=== PATIENT | female | born 1985 | race Caucasian/White ===

== ENCOUNTER → 2022-02-22 13:51 | Outpatient (CLI) | payer BC, SELFPAY ==
[2022-02-22 14:17] LABS: Appearance Urine UA CLEAR; Bilirubin Urine UA NEGATIVE (NEGATIVE); Color Urine UA YELLOW; Glucose Urine UA NEGATIVE (Negative); Ketones Urine UA NEGATIVE (NEGATIVE); Leukocyte Esterase Urine UA NEGATIVE (NEGATIVE); Nitrite Urine UA NEGATIVE (Negative); Occult Blood Urine UA NEGATIVE (Negative); Protein Urine UA NEGATIVE (Negative); Specific Gravity Urine UA <=1.005 (1.000-1.035); Urobilinogen Urine UA 0.2 E.U./dL (0.2)
[2022-02-22 14:20] LABS: Add Manual Diff / Slide Review NO; Basophils Absolute Auto 0 /uL (0-100); Basophils Percent Auto 0.5 % (0-2); Eosinophils Absolute Auto 0 /uL (0-450); Eosinophils Percent Auto 0.2 % (2-4); Hematocrit 40.4 % (36-46); Lymphocytes Absolute Auto 1200 /uL (1100-4500); Lymphocytes Percent Auto 12.6 % (25-40); Mean Corpuscular HGB Conc 34.6 % (30-36); Mean Corpuscular Hemoglobin 30.7 PG (26-34); Mean Corpuscular Volume 88.8 fL (80-100); Monocytes Absolute Auto 800 /uL (0-900); Neutrophils Absolute Auto 7800 /uL (1500-7000); Neutrophils Percent Auto 78.7 % (50-75); Platelet Count 305 X10^3/uL (150-400); Red Blood Cell Count 4.55 X10^6/uL (4.0-5.2); Red Cell Distribution Width 12.2 % (11.6-14.8); White Blood Cell Count 9.9 X10^3/uL (4.5-11.0)
[2022-02-22 23:27] LABS: HIV 1 & 2 Ab/Ag 4th Gen Combo NEGATIVE (NEGATIVE); Hep C Virus Ab w/Reflex Quant NEGATIVE s/c (NEGATIVE); Hepatitis B Surface Antigen NEGATIVE s/c (NEGATIVE)
[2022-02-23 05:23] LABS: RPR Screen Non Reactive (Non Reactive)
[2022-02-23 08:58] LABS: Varicella IgG Antibody 2518 index (Immune >165)
== END ==
PROVIDERS: PCP Family Medicine; Referring Provider Family Medicine; Visit Provider Family Medicine
DX: Z34.80 Encounter for supervision of other normal pregnancy, unspecified trimester (principal)
CPT/HCPCS: 36415; 80055; 81003; 86787; 86803; 86850; 86900; 86901; 87086; 87389

== ENCOUNTER → 2022-03-08 15:41 | Outpatient (CLI) | payer BC, SELFPAY | PROVIDERS: PCP Family Medicine; Referring Provider Family Medicine; Visit Provider Family Medicine | DX: O09.521 Supervision of elderly multigravida, first trimester (principal); Z31.438 Encounter for other genetic testing of female for procreative management; Z36.0 Encounter for antenatal screening for chromosomal anomalies | CPT/HCPCS: 36415; 81420 ==

== ENCOUNTER → 2022-04-28 12:23 | Outpatient (CLI) | payer BC, SELFPAY ==
--- NOTE | 2022-04-28 12:24 | DI.US.S_ITS ---
PROCEDURE: US OB >= 14 WEEKS FETUS INDICATIONS: ANATOMY SCAN OUTSIDE/PRIOR DATING DATA: Last menstrual period (LMP): Unknown. LMP-based estimated date of delivery (NITIN): Not available First dating scan (date and location): [facility], April 28, 2022 Estimated date of delivery (NITIN) from first dating scan: September 10, 2022. TECHNIQUE: Real-time scanning was performed of the fetus, with image documentation and biometric measurements. Endovaginal scanning: Not performed COMPARISON: None. FINDINGS: General: A single living intrauterine gestation is present. Presentation: Vertex. Placenta: Placental position is anterior, without previa. Amniotic fluid index: 15.3 cm, normal range is 5-24 cm. Single deepest vertical pocket is 4.03 cm. heart rate: 153 beats per minute. Maternal cervical canal: 3.9 cm long. Normal lower limit is 2.5 cm. biometrics: Biparietal diameter: 4.9 cm, 20 weeks, 6 days Head circumference: 18.8 cm, 21 weeks, 1 day Abdominal circumference: 15.0 cm, 20 weeks, 2 days Femur length: 3.4 cm, 20 weeks, 4 days Composite gestational age from present scan: 20 weeks, 5 days Estimated weight and percentile: 357 g Anatomic survey: Neuro: Ventricles are non-dilated at less than 10 mm. Cisterna magna is normal at 3-11 mm. Cerebellum is normal in size and morphology. Nuchal skin fold: Normal at less than 6 mm between 14-21 weeks gestational age. Face: Nose and lips, facial profile are normal. Spine: No evidence for spina bifida. Heart: 4-chambered heart is present, with normal ventricular outflow tracts. Diaphragm: Diaphragm is intact. Stomach: Left-sided stomach is present. Kidneys: No hydronephrosis. Normal is less than 5 mm in 2nd trimester, less than 7 mm in 3rd trimester. Cord: 3-vessel cord has orthotopic insertion. Bladder: Normal in size. Extremities: All 4 extremities identified. IMPRESSION: 1. Single live intrauterine gestation with a composite gestational age of 20 weeks, 5 days. 2. No sonographic anatomic abnormalities. We strive to produce accurate, complete, and clear reports of imaging services. To assist us in improving patient care, this report was composed using standard report templates and voice recognition software. Therefore, it may contain abnormal punctuation, insertions and/or omissions. Occasional wrong-word or sound-alike substitutions may occur. Though we review the report and make efforts to correct it, we do recommend that the report be read carefully in proper context to recognize any text inaccuracies. Dictated by: Carmen Blanco M.D. on 04/28/2022 at 14:35 Approved by: Carmen Blanco M.D. on 04/28/2022 at 14:38
== END ==
PROVIDERS: PCP Family Medicine; Referring Provider Family Medicine; Visit Provider Family Medicine
DX: Z34.82 Encounter for supervision of other normal pregnancy, second trimester (principal); Z3A.20 20 weeks gestation of pregnancy
CPT/HCPCS: 76811

== ENCOUNTER → 2022-06-28 08:04 | Outpatient (CLI) | payer BC, SELFPAY ==
[2022-06-28 10:17] LABS: Add Manual Diff / Slide Review NO; Basophils Absolute Auto 0 /uL (0-100); Basophils Percent Auto 0.2 % (0-2); Eosinophils Absolute Auto 100 /uL (0-450); Eosinophils Percent Auto 0.6 % (2-4); Hematocrit 35.5 % (36-46); Hemoglobin 12.3 g/dL (12.0-16.0); Lymphocytes Absolute Auto 1300 /uL (1100-4500); Lymphocytes Percent Auto 13.8 % (25-40); Mean Corpuscular HGB Conc 34.7 % (30-36); Mean Corpuscular Hemoglobin 30.6 PG (26-34); Mean Corpuscular Volume 88.2 fL (80-100); Monocytes Absolute Auto 700 /uL (0-900); Monocytes Percent Auto 7.2 % (3-14); Neutrophils Absolute Auto 7400 /uL (1500-7000); Neutrophils Percent Auto 78.2 % (50-75); Platelet Count 301 X10^3/uL (150-400); Red Blood Cell Count 4.03 X10^6/uL (4.0-5.2); Red Cell Distribution Width 12.9 % (11.6-14.8); White Blood Cell Count 9.4 X10^3/uL (4.5-11.0)
[2022-06-28 10:30] LABS: GTT (PREG) 1 Hour PP 50gm Dose 143 mg/dL (76-139)
== END ==
PROVIDERS: PCP Family Medicine; Referring Provider Family Medicine; Visit Provider Family Medicine
DX: Z34.92 Encounter for supervision of normal pregnancy, unspecified, second trimester (principal); Z3A.25 25 weeks gestation of pregnancy
CPT/HCPCS: 36415; 82950; 85025

== ENCOUNTER → 2022-07-13 10:55 | Outpatient (CLI) | payer BC, SELFPAY ==
[2022-07-13 13:00] LABS: Glucose Fasting 90 mg/dL (70-100)
[2022-07-13 13:26] LABS: Glucose 1 Hour 148 mg/dL (70-170)
[2022-07-13 14:40] LABS: Glucose Tol Interpretation INTERPRETATION
[2022-07-13 15:27] LABS: Glucose 2 Hour 130 mg/dL (70-140)
[2022-07-13 16:02] LABS: Glucose 3 Hour 98 mg/dL (70-115)
== END ==
PROVIDERS: PCP Family Medicine; Referring Provider Family Medicine; Visit Provider Family Medicine
DX: Z34.80 Encounter for supervision of other normal pregnancy, unspecified trimester (principal)
CPT/HCPCS: 36415; 82951; 82952

== ENCOUNTER → 2022-08-25 15:12 | Outpatient (CLI) | payer BC, SELFPAY ==
[2022-08-26 14:36] LABS: Strep Grp B PCR NEG for Grp B Strep
== END ==
PROVIDERS: PCP Family Medicine; Visit Provider Family Medicine
DX: Z36.85 Encounter for antenatal screening for Streptococcus B (principal)
CPT/HCPCS: 87653

== ENCOUNTER 2022-09-02 05:19 | Inpatient (IN) | payer BC, SELFPAY ==
[2022-09-02 08:02] LABS: Add Manual Diff / Slide Review NO; Basophils Absolute Auto 100 /uL (0-100); Basophils Percent Auto 0.6 % (0-2); Eosinophils Absolute Auto 0 /uL (0-450); Eosinophils Percent Auto 0.2 % (2-4); Hematocrit 36.1 % (36-46); Hemoglobin 12.3 g/dL (12.0-16.0); Lymphocytes Absolute Auto 1500 /uL (1100-4500); Lymphocytes Percent Auto 14.1 % (25-40); Mean Corpuscular HGB Conc 34.1 % (30-36); Mean Corpuscular Hemoglobin 29.9 PG (26-34); Mean Corpuscular Volume 87.6 fL (80-100); Monocytes Absolute Auto 1100 /uL (0-900); Monocytes Percent Auto 10.2 % (3-14); Neutrophils Absolute Auto 8100 /uL (1500-7000); Neutrophils Percent Auto 74.9 % (50-75); Platelet Count 297 X10^3/uL (150-400); Red Blood Cell Count 4.12 X10^6/uL (4.0-5.2); Red Cell Distribution Width 13.6 % (11.6-14.8); White Blood Cell Count 10.8 X10^3/uL (4.5-11.0)
[2022-09-02 08:04] LABS: COVID19 -Nasal RAPID Negative (Negative)
--- NOTE | 2022-09-02 09:33 | P.HPOB_ITS ---
OB HPI Date/Time Date of admission: 09/02/22 Date Patient Seen: 09/02/22 Time Patient Seen: 09:33 History of Present Condition Chief complaint: : 2 Para: 1 Estimated Date of Delivery: 09/16/22 Estimated Gestational Age (weeks): 38 Narrative: Amy Banuelos is a 37 year old female admitted with premature rupture membranes History of Present care: good care, initiated at week # (7), number of visits (11) and pounds weight gain (25) Dating criteria: based on 1st trimester US only Ultrasounds: normal mid trimester US Obstetrical complications: none Medical complications: none Preadmission Labs Blood type: B (+) positive -: Antibody screen: negative, GBS status: negative, HBsAG: negative, HIV: negative and RPR/VDLR: negative -: Chlamydia screen: not detected and Gonorrhea screen: not detected -: Rubella: immune and Varicella: immune HCAB: negative Cell-free DNA: Normal 1 hr GTT: 143 3 hr GTT: 1 hr (148), 2 hr (130) and 3 hr (98) Fasting blood glucose: 90 Prior (ies) History: June 2019 37 week delivery 6 lb 8 oz vaginal delivery with an epidural for pain Evaluation Evaluation Baseline heart rate: 150 Variability: Moderate (11-25) monitor accelerations: Present Monitor Decelerations: Absent Contraction Frequency (minutes): 0 Category of Tracing: Reactive Status: Category l Non-invasive Membranes Rupture Test: positive [facility] Surgical History (Updated 01/26/22 @ 15:03 by Ronit Hubbard RN) Anesthesia History of surgery (~2008) History of wisdom tooth extraction Tumor (~2008) Family History (Updated 01/17/22 @ 19:27 by Ngozi Krishnan) Mother Hypertension Brother Mental health problem Adopted Sister Pacemaker Grandmother Diabetes mellitus Hypertension Social History marital status: number of children: 1 household members: spouse and children lives independently: Yes housing: house pets and animals: No education level: college (masters degree) occupational status: employed current occupational exposures/hazards: No special osmani needs: No travel history: recent (September) seatbelt use: always water heater temp set < 120 deg: Yes working smoke detector in home: Yes fire extinguisher in home: Yes carbon monox detector in home: Yes firearms in home: No do you feel safe at home: Yes Smoking Status: Never smoker second hand exposure: No alcohol intake: former substance use type: former substance user and marijuana (not during ) during the past year weight has: remained stable well-balanced diet: daily or most days daily servings fruits/ve-1 caffeine: Yes (200mg limit) Type(s) of exercise: walking and irregular exercise Meds Home Medications and Allergies Home Medications Medication Instructions Recorded Confirmed Type prenat.vits,moises,[id number] 1 tab PO DAILY 01/26/22 09/02/22 History ondansetron 4 mg disintegrating 4 mg PO Q8H PRN nausea and 02/01/22 09/02/22 Rx tablet vomiting #30 tabs SPECTRA S1 PLUS KIT W/ MO TOTE See Rx Instructions .Route 07/28/22 09/02/22 Rx BAG, PINK COOLER, BLUE,1/EA .COMPLEX #1 ea Allergies Allergy/AdvReac Type Severity Reaction Status Date / Time amoxicillin Allergy Mild Rash Verified 08/25/22 14:14 Review of Systems Review of Systems Narrative: Patient had spontaneous rupture membranes at 3:30 a.m.. She is not having contractions. She denies headaches, scotomata, epigastric pain. Good movement. OB Exam Narrative Exam Narrative: Blood pressure 129/80, pulse 101, temperature 96.9? HEENT exam within normal limits. Lungs are clear to auscultation percussion. Heart is regular rate and rhythm no S3-S4 murmurs. Abdomen is gravid, fetus is vertex. Extremities without edema and nontender. Objective Labs Result Diagrams: 09/02/22 07:04 Labs: Laboratory Results - last 24 hr 09/02/22 09/02/22 09/02/22 07:04 07:04 07:04 WBC 10.8 RBC 4.12 Hgb 12.3 Hct 36.1 MCV 87.6 MCH 29.9 MCHC 34.1 RDW 13.6 Plt Count 297 Neut % (Auto) 74.9 Lymph % (Auto) 14.1 L [place] % (Auto) 10.2 Eos % (Auto) 0.2 L Baso % (Auto) 0.6 Neut # (Auto) 8100 H Lymph # (Auto) 1500 [place] # (Auto) 1100 H Eos # (Auto) 0 Baso # (Auto) 100 SARS-CoV-2 (PCR) Negative Blood Type B Positive Antibody Screen Negative Assessment and Plan Assessment and Plan Assessment and Plan narrative: Patient with PROM at 3:30 a.m.. Patient is not marci at this time. Patient requests waiting for augmentation of labor to see if she will go into la bor herself. Dr. Mcintyre contacted and she will take over care of the patient. Time Spent with Patient Total time spent with greater than 50% in coordination of care (as documented) at patient's floor/unit and/or counseling patient:: less than 15 minutes
[2022-09-02] MEDS: LACTATED RINGERS 1,000 ML 100 ML IV (13:45)
[2022-09-02] MEDS: FENT 2MCG/ML BUPIV 0.125% EPI 200 MCG/100 ML PLAST..BAG 6 MCG EPIDURAL (14:46)
[2022-09-02] MEDS: LACTATED RINGERS 1,000 ML 1000 ML IV (14:46)
[2022-09-02] MEDS: OXYTOCIN PREMIX 30 UNIT/500 ML PLAST..BAG 200 UNIT IV (15:20)
--- NOTE | 2022-09-02 15:20 | PM.OBHP.IH.1 ---
OB HPI Date/Time Date of admission: 09/02/22 Date Patient Seen: 09/02/22 Time Patient Seen: 15:20 History of Present Condition Chief complaint: NITIN Calculator Estimated Delivery Date Method Current WG Current Estimate 09/16/22 Manual 38w 0d Final NITIN - LUIS Other Estimates 09/13/22 LMP (Uncertain) 38w 3d 09/16/22 Ultrasound #1 38w 0d Estimated Gestational Age (weeks): 38w0d : 2 Para: 1 Narrative: 37yo at 38w0d presented with leaking fluid. Pt reports feeling a gush of fluid around 3:30am. No vaginal bleeding. She initially was not feeling contractions, but they then became more consistent and intense. She is feeling her baby move regularly. Her has been uncomplicated. She is AMA with negative cfDNA testing. care: good care, initiated at week # and pounds weight gain Dating criteria OB: LMP confirmed by 1st trimester US Ultrasounds: normal 1st trimester US and normal mid trimester US Obstetrical complications: none Medical complications OB: none Preadmission Labs Last OB Lab Results: Blood Type B Positive 09/02/22 07:04 Antibody Screen Negative 09/02/22 07:04 Hematocrit 36.1 % (36-46) 09/02/22 07:04 Hemoglobin 12.3 g/dL (12.0-16.0) 09/02/22 07:04 Hepatitis B Surface Antigen Negative s/c (NEGATIVE) 02/22/22 13:56 Hepatitis C Antibody Negative s/c (NEGATIVE) 02/22/22 13:56 Rubella Antibody 109.0 IU/mL (>15) 02/22/22 13:56 Varicella-Zoster IgG Antibody 2518 index (Immune >165) 02/22/22 13:56 Glucose 1 Hour 143 mg/dL (76-139) H 06/28/22 08:26 Group B Streptococcus (PCR) Neg for grp b strep 08/25/22 15:12 Glucose Tolerance Testing: Fasting (90), 1 hr (148), 2 hr (130) and 3 hr (98) -: Urine: negative Genetic Screens: Cell-free DNA: Normal External Labs -: Urine: negative Prior (ies) Past Pregnancies Del. Date GA/Weeks Labor Lgth Wt Sex Route Outcome Anesthesia Place Delv Breastfeed Preg Comp Name 07/17/19 37 9 6 lb 8 oz Male vaginal live - epidural [place], [place] Pumped for 6 months delivery Anmol Delivery Date: 07/17/19 Last Updated by: Ronit Hubbard R.N. [facility], augmented with Pitocin Evaluation Evaluation Baseline heart rate: 130 Variability: Moderate (11-25) monitor accelerations: Present Monitor Decelerations: Absent Contraction Frequency (minutes): 4 Status: Category l Dilation (cm): 3 Effacement (%): 80 Dilation: 3-4 cm Effacement: >/=80% station: -2 (but ballotable) Position of cervix: mid Consistency: soft Espinoza score: 9 PFSH Surgical History (Updated 01/26/22 @ 15:03 by Ronit Hubbard RN) Anesthesia History of surgery (~2008) History of wisdom tooth extraction Tumor (~2008) Family History (Updated 01/17/22 @ 19:27 by Ngozi Krishnan) Mother Hypertension Brother Mental health problem Adopted Sister Pacemaker Grandmother Diabetes mellitus Hypertension Social History marital status: number of children: 1 household members: spouse and children lives independently: Yes housing: house pets and animals: No education level: college (masters degree) occupational status: employed current occupational exposures/hazards: No special osmani needs: No travel history: recent (September) seatbelt use: always water heater temp set < 120 deg: Yes working smoke detector in home: Yes fire extinguisher in home: Yes carbon monox detector in home: Yes firearms in home: No do you feel safe at home: Yes Smoking Status: Never smoker second hand exposure: No alcohol intake: former substance use type: former substance user and marijuana (not during ) during the past year weight has: remained stable well-balanced diet: daily or most days daily servings fruits/ve-1 caffeine: Yes (200mg limit) Type(s) of exercise: walking and irregular exercise Meds Home Medications and Allergies Home Medications Medication Instructions Recorded Confirmed Type prenat.vits,moises,bsr-bafc-afkcf 1 tab PO DAILY 01/26/22 09/02/22 History ondansetron 4 mg disintegrating 4 mg PO Q8H PRN nausea and 02/01/22 09/02/22 Rx tablet vomiting #30 tabs SPECTRA S1 PLUS KIT W/ MO TOTE See Rx Instructions .Route 07/28/22 09/02/22 Rx BAG, PINK COOLER, BLUE,1/EA .COMPLEX #1 ea Allergies Allergy/AdvReac Type Severity Reaction Status Date / Time amoxicillin Allergy Mild Rash Verified 08/25/22 14:14 OB Exam Narrative Exam Narrative: Gen: NAD, sitting comfortably in bed, appears well CV: RRR, no murmurs Resp: clear to auscultation bilaterally Abd: soft, nontender, gravid Ext: no edema Objective Labs Result Diagrams: 09/02/22 07:04 Labs: Laboratory Results - last 24 hr 09/02/22 09/02/22 09/02/22 07:04 07:04 07:04 WBC 10.8 RBC 4.12 Hgb 12.3 Hct 36.1 MCV 87.6 MCH 29.9 MCHC 34.1 RDW 13.6 Plt Count 297 Neut % (Auto) 74.9 Lymph % (Auto) 14.1 L [place] % (Auto) 10.2 Eos % (Auto) 0.2 L Baso % (Auto) 0.6 Neut # (Auto) 8100 H Lymph # (Auto) 1500 [place] # (Auto) 1100 H Eos # (Auto) 0 Baso # (Auto) 100 SARS-CoV-2 (PCR) Negative Blood Type B Positive Antibody Screen Negative Assessment and Plan Assessment and Plan Assessment and Plan narrative: 37yo at 38w0d presented PROM, now in early labor. No complications with . GBS negative, Rh positive. - Expectant management, anticipate - FHT reassuring - Epidural in place for pain control - GBS negative, no prophylaxis indicated - Pt now 12hrs after ROM, contractions not consistent. Will start pitocin and titrate as tolerated.
[2022-09-02] MEDS: CALCIUM CARBONATE 500 MG TAB PO (16:02)
--- NOTE | 2022-09-02 20:20 | PM.OBPNLAB ---
Date/Time Date Patient Seen: 09/02/22 Time Patient Seen: 20:20 Pain Control Pain control: epidural Pelvic Exam Dilation (cm): 9.5 Effacement (%): 100 station: 0 Amniotic membrane status: Ruptured Comments: After informed consent, forebag was ruptured with clear fluid present Contractions Monitor mode: External Pitocin rate (mU/min): 10 Contraction frequency (min): 2 Status status: Category l Heart Rate Baseline: 140 Monitor Accelerations: Present Monitor Decelerations: Absent Monitor Variability: Moderate Assessment and Plan Comments: 37yo at 38w0d here with PROM, now in active labor. No complications with . AROM of forebag performed with clear fluid present. GBS negative, Rh positive. - Expectant management, anticipate . Pt with left sided cervical lip present, easily reducible. FHT reassuring, so will continue to labor without pushing yet. - Continue pitocin, titrate as tolerated - Epidural working well for pain control
--- NOTE | 2022-09-02 21:41 | PM.OBPRVD ---
Labor & Delivery Delivery date: 09/02/22 Intrapartal Events: None Cervical ripening method: none Induction method: none Delivery augmentation: rupture of membranes and pitocin Delivery monitor: external FHT and external uterine Route of delivery: Episiotomy description: None L&D Laceration Description: Perineal - 2nd Degree Delivery repair: vicryl Quantitative Blood Loss: 100 Anesthesia Type: Epidural Complications: None Narrative: PROCEDURE: at 38w0d presented with PROM and was admitted to Labor and Delivery. The patient progressed through the 1st stage over 7.5 hours. Pain was controlled with an epidural. Pitocin was initiated to help labor progress and avoid prolonged ROM. AROM of a forebag was performed with production of clear fluid. The patient progressed through the 2nd stage over 17 minutes and delivered a viable male infant with APGARs 9/9 at 21:12 via without complications. A nuchal cord x1 was reduced at the perineum. The perineum and vagina were inspected with 2nd degree perineal laceration repaired with 2-O Vicryl. PREPROCEDURE DIAGNOSIS: Intrauterine at 38w0d AMA GBS negative RH positive POSTPROCEDURE DIAGNOSIS: Intrauterine at 38w0d, delivered Same as preprocedure Baby 1: gender: Male Presentation: vertex Position: Left Occiput Anterior Placenta delivery description: Spontaneous Cord Vessel Description: 3 Vessels and Nuchal Cord (x1, reduced at perineum) score (1 min): 9 score (5 min): 9 weight: 8 lb 6.006 oz Plan for aftercare: Routine care
[2022-09-02] MEDS: IBUPROFEN 600 MG TABLET PO (23:31)
[2022-09-02] MEDS: ACETAMINOPHEN 325 MG TABLET 650 MG PO (23:32)
[2022-09-02] MEDS: DERMOPLAST SPRAY 20% 60 ML 1 SPRAY TOP (23:33)
[2022-09-03] MEDS: ACETAMINOPHEN 325 MG TABLET 650 MG PO ×2 (06:18→12:46)
[2022-09-03] MEDS: IBUPROFEN 600 MG TABLET PO ×2 (06:18→12:47)
[2022-09-03] MEDS: OXYCODONE IR 5 MG TABLET PO ×2 (06:19→14:13)
[2022-09-03] MEDS: PRENATAL VIT,CALC/IRON/FOLIC 1 TABLET 1 TAB PO (09:12)
[2022-09-03] MEDS: DOCUSATE 100 MG CAPSULE PO (09:12)
[2022-09-03] MEDS: LANOLIN OINT 7 GM 1 APPLIC TOP (12:53)
[2022-09-03 17:37] VITALS: BP 126/76; PULSE 78; RESP 17; TEMP 35.6
--- NOTE | 2022-09-03 17:55 | P.DS_ITS ---
Discharge Providers Provider Date of admission: 09/02/22 05:19 Discharge Date: 09/03/22 Primary care physician: Nallely Mcintyre MD Consults: 09/03/22 21:54 Consult to Swim Instructor Routine Comment: Discharge provider: Nallely Mcintyre MD Summary Hospital Course Date Patient Seen: 09/03/22 Diagnoses: Intrauterine at 38w0d AMA GBS negative RH positive Hospital Course: The pt presented with PROM at home. She progressed into early labor, and pitoci n was initiated. The pt had an epidural for pain control. AROM of a forebag was performed. She progressed to complete and had an of a viable baby boy on 09/02/22. A 2nd degree perineal laceration was then repaired. The pt tolerated the delivery well. , there were no complications. At the time of discharge she was voiding, ambulating, and passing flatus without difficulty. Her lochia was decreasing appropriately. She was with good latch. Her pain was well controlled. She will f/u in clinic in 6 weeks for check. Peripartum Data Delivery Method: Natural Vaginal Laceration Description: Perineal - 2nd Degree Episiotomy description: None Procedures: Spontaneous vaginal delivery complications: none [place] 1: Gender: Male Disposition of : home Discharge Diagnosis (1) Spontaneous vaginal delivery: Status: Acute Time Spent with Patient Time attestation: Total time spent providing and/or coordinating discharge services: Objective Labs Result Diagrams: 09/02/22 07:04 Exam Vital Signs (past 8 hours): - 09/03/22 17:37 Temperature 96.0 F L Pulse Rate 78 Respiratory Rate 17 Blood Pressure 126/76 Narrative Exam Narrative: Gen: NAD, sitting comfortably in bed, appears well CV: RRR, no murmurs Resp: clear to auscultation bilaterally Abd: soft, appropriately tender, fundus firm and below the umbilicus, nondistended Ext: no edema Discharge Plan Discharge Plan Patient Disposition: Home Discharge orders & Medications Prescriptions: New acetaminophen 325 mg Tablet 650 mg PO Q6HR PRN (Reason: Pain, Mild (1-3)) Qty: 30 0RF docusate sodium 100 mg Capsule 100 mg PO DAILY Qty: 30 0RF ibuprofen 600 mg Tablet 600 mg PO Q6HR PRN (Reason: Pain, Mild (1-3)) Qty: 30 0RF Continued SPECTRA S1 PLUS KIT W/ MO TOTE BAG, PINK COOLER, BLUE,1/EA See Rx Instructions .ROUTE .COMPLEX Qty: 1 0RF Dose Instruction: DUE DATE 08.03.19 Rx Instructions: DUE DATE 08.03.19 prenat.vits,moises,[id number] Tablet 1 tab PO DAILY Discontinued ondansetron 4 mg tablet,disintegrating 4 mg PO Q8H PRN (Reason: nausea and vomiting) Qty: 30 2RF Follow up/Referrals: Nallely Mcintyre MD [Primary Care Provider] - 6 Weeks (Please make an appointment for post check in 6 weeks with ) Diet/Activity/Treatments Diet: Diet as Tolerated and Regular Skin/Wound/Dressing Care Report to your healthcare provider any signs of infection, such as:: chills, fever, increased pain and unusual drainage Visit Report/Discharge Packet Instructions: DI for Labor and Delivery, Vaginal Visit Report Forms: Patient Portal/API, Stroke Signs & Symptoms Discharge Data Primary Care Provider: Nallely Mcintyre Discharges patient from system. Discharge Date/Time: 09/03/22 18:41
== END 2022-09-03 18:41 | disposition home or self-care (01) | DRG 807 ==
PROVIDERS: Admitting Provider Specialist; PCP Family Medicine; Referring Provider Specialist; Visit Provider Specialist
DX: O42.02 Full-term premature rupture of membranes, onset of labor within 24 hours of rupture (principal); Z37.0 Single live birth; Z3A.38 38 weeks gestation of pregnancy; O69.81X0 Labor and delivery complicated by cord around neck, without compression, not applicable or unspecified; O70.1 Second degree perineal laceration during delivery
CPT/HCPCS: 01967; 59050; 59400; 84112; 85025; 86850; 86900; 86901; 87635; C9803; G0379; J2590